=== PATIENT | male | born 1965 | race Hispanic/Latino ===

== ENCOUNTER 2018-06-05 09:06 | Day surgery (SDC) | payer OTHER ==
[2018-06-05] MEDS ORDERED: ANCEF/STERILE WATER 2 GM/20 ML IV NR (09:20)
[2018-06-05] MEDS ORDERED: VERSED IV PRN (09:26)
[2018-06-05] MEDS ORDERED: LACTATED RINGERS 1,000 ML IV SCH (10:00)
[2018-06-05] MEDS ORDERED: DILAUDID IV ONE (11:00)
--- NOTE | 2018-06-05 11:01 | Anesthesia Consultation ---
Anesthesia Consult and Med Hx Date of service: 06/05/18 - Airway Anesthetic Teeth Evaluation: Good ROM Head & Neck: Adequate Mental/Hyoid Distance: Adequate Mallampati Class: Class II Intubation Access Assessment: Good - Pulmonary Exam CTA: Yes - Cardiac Exam Cardiac Exam: No Murmur - Pre-Operative Health Status ASA Pre-Surgery Classification: ASA2 - Pulmonary Hx Smoking: Yes (CHEWING TOBACCO- STOPPED 2002) Hx Asthma: Yes ( CHILD ONLY) Hx Sleep Apnea: Yes (DX SLEEP APNEA , NO CPAP USE.) - Cardiovascular System Hx Hypertension: Yes (RECENT DX- ON MEDS X 1 WEEK) - Other Systems Hx Cancer: No
--- NOTE | 2018-06-05 11:02 | Anesthesia Day of Surgery ---
Anesthesia Day of Surgery - Day of Surgery Patient Examined: Yes Patient H&P Reviewed: Yes Patient is NPO: Yes
[2018-06-05] MEDS ORDERED: SUBLIMAZE ONE (11:49)
[2018-06-05] MEDS ORDERED: DIPRIVAN 10 MG/ML IV ONE (11:52)
[2018-06-05] MEDS ORDERED: ZOFRAN ONE (11:59)
[2018-06-05] MEDS ORDERED: XYLOCAINE MPF 2% ONE (11:59)
--- NOTE | 2018-06-05 12:52 | Post Operative Note ---
Date of procedure: 06/05/18 Pre-op diagnosis: renal stones Post-op diagnosis: same Findings: large upj stone Procedure: r eswl Anesthesia: BELLA Surgeon: JUDY GALO Estimated blood loss: none Pathology: none Condition: stable Disposition: PACU
--- NOTE | 2018-06-05 12:54 | Discharge Summary ---
Short Stay Discharge Plan Activity: other (no straining ) Weight Bearing Status: Full Weight Bearing Diet: low fat, low salt Special Instructions: other (inc fluids ) Follow up with: GIBRAN MAXWELL [Other] - 7 Days ADA JHAVERI MD [Staff Physician] - 7 Days
[2018-06-05 13:04] VITALS: BP 130/87
[2018-06-05] MEDS ORDERED: DILAUDID IV PRN (13:16)
--- NOTE | 2018-06-05 15:19 | Operative Report ---
PREOPERATIVE DIAGNOSIS: Right ureteropelvic junction stone transposed into the kidney. POSTOPERATIVE DIAGNOSIS: Right ureteropelvic junction stone transposed into the kidney. PROCEDURE: Right lithotripsy post-stenting. SURGEON: Keny Owens MD ANESTHESIA: General. FINDINGS: This is a gentleman, who had a stent with possible pending urosepsis and now presents for treatment with ESWL. DESCRIPTION OF PROCEDURE: The patient was brought to lithotripsy and placed on the table. Following induction of anesthesia, he was placed in supine position. Stone was located both the AP and oblique image. Following the induction of anesthesia, shocks were begun at 1 kV, increased to maximum of 7 kV. There was excellent fragmentation of the stone. The patient tolerated the procedure well. He is still based on the biggest piece may need further procedures, but we had good fragmentation, tolerated the procedure well and brought to recovery in stable condition. JOB# [id number] TRAV/CARYN
== END 2018-06-05 09:07 | disposition home or self-care (01) ==
LOC: OR 09:06
PROVIDERS: ATTEND Urology
DX: N20.2 Calculus of kidney with calculus of ureter (principal); I10 Essential (primary) hypertension; J45.909 Unspecified asthma, uncomplicated; G47.30 Sleep apnea, unspecified; Z79.899 Other long term (current) drug therapy; Z79.01 Long term (current) use of anticoagulants; Z87.891 Personal history of nicotine dependence
CPT/HCPCS: 50590; J0690; J1170; J2250; J2405; J2704; J3010; J7120